=== PATIENT | male | born 1945 | race Caucasian/White ===

== ENCOUNTER 2025-02-01 14:32 | Inpatient (IN) ==
[2025-02-01] MEDS ORDERED: IOPAMIDOL 100 ML BOTTLE IV ONE (14:33)
[2025-02-01] MEDS: IPRATROPIUM/ALBUTEROL 3 ML AMPUL.NEB NEB ONE (15:00)
[2025-02-01] MEDS: 0.9 % SODIUM CHLORIDE 1,000 ML IV ONE (15:06)
[2025-02-01] MEDS: PIPERACILLIN SODIUM/TAZOBACTAM 3.375 GM in DEXTROSE 5% IN WATER 50 ML IV ONE (15:12)
[2025-02-01] MEDS ORDERED: VANCOMYCIN PER PHARMACY IV SCH (15:15)
[2025-02-01 15:36] LABS: Basophils # (Auto) 0.04 K/mcL (0.00-0.30); Basophils % (Auto) 0.2 % (0.0-2.0); Eosinophils # (Auto) 0.02 K/mcL (0.00-0.70); Eosinophils % (Auto) 0.1 % (0.0-7.0); Hematocrit 38.1 % (40.1-51.0); Hemoglobin 11.9 g/dL (13.7-17.5); Lymphocytes # (Auto) 0.46 K/mcL (1.50-4.80); Lymphocytes % (Auto) 2.3 % (15.5-49.0); Mean Corpuscular HGB Conc 31.2 g/dL (31.0-36.0); Monocytes # (Auto) 0.93 K/mcL (0.10-0.90); Monocytes % (Auto) 4.7 % (1.0-12.0); Neutrophils % (Auto) 92.3 % (38.0-78.0); Platelet Count 243 K/mcL (140-440); RBC 3.99 M/mcL (4.63-6.08); WBC 20.0 K/mcL (4.5-11.0)
[2025-02-01] MEDS: VANCOMYCIN 1,750 MG in 0.9 % SODIUM CHLORIDE 500 ML IV SCH (15:44)
[2025-02-01 15:58] LABS: ALT/SGPT 13 U/L (<40); AST/SGOT 20 U/L (<40); Albumin 3.9 gm/dL (3.2-5.2); Albumin/Globulin Ratio 1.6 (1.0-2.3); Alkaline Phosphatase 59 U/L (39-117); Anion Gap 11.0 (8.0-16.0); Bilirubin,Total 0.5 mg/dL (0.1-1.0); Blood Urea Nitrogen 47 mg/dL (8-23); Calcium 9.1 mg/dL (8.6-10.4); Carbon Dioxide 27 mmol/L (22-30); Chloride 98 mmol/L (96-108); Globulin 2.5 gm/dL (2.2-3.7); Glucose 130 mg/dL (70-105); Potassium 4.7 mmol/L (3.3-5.1); Sodium 136 mmol/L (133-145)
[2025-02-01 16:11] LABS: INR 1.0 (0.9-1.1); Prothrombin Time 13.8 sec (11.9-14.5)
[2025-02-01] MEDS: 0.9 % SODIUM CHLORIDE 500 ML IV ONE (16:11)
[2025-02-01] MEDS: HEPARIN 5,000 UNIT/ML VIAL IV PRN (18:11)
[2025-02-01] MEDS: HEPARIN SOD,PORK IN 0.45% NACL 500 ML IV SCH (18:12)
[2025-02-01 18:58] LABS: Bacteria,Urine Many /hpf (0); Bilirubin,Urine Negative (Negative); Color,Urine Yellow; Glucose,Urine (UA) Negative (Negative); Ketones,Urine 5(Trace) mg/dL (Negative); Leukocyte Esterase,Urine 2+(Moderate) /uL (Negative); PH,Urine 5.5 (5.0-9.0); Protein,Urine Negative (Negative); Specific Gravity,Urine 1.010 (1.000-1.035); Urobilinogen,Urine Normal
[2025-02-01] MEDS ORDERED: ALBUTEROL SULFATE 2.5 MG/3 ML NEBULIZER NEB PRN (21:02)
[2025-02-01] MEDS ORDERED: SENNOSIDES 1 TABLET PO PRN (21:02)
[2025-02-01] MEDS ORDERED: DEXTROSE 50% 50 ML VIAL IV PRN (21:02)
[2025-02-01] MEDS ORDERED: ONDANSETRON 4 MG/2 ML VIAL IV PRN (21:02)
[2025-02-01] MEDS ORDERED: LACTULOSE 20 GM/30 ML ORAL.SOL PO PRN (21:02)
[2025-02-01] MEDS ORDERED: DEXTROSE 31 GM ORAL.SUSP PO PRN (21:02)
[2025-02-01] MEDS: IPRATROPIUM/ALBUTEROL 3 ML AMPUL.NEB NEB SCH (21:18)
[2025-02-01 21:50] LABS: ALT/SGPT 14 U/L (<40); AST/SGOT 28 U/L (<40); Albumin 3.9 gm/dL (3.2-5.2); Albumin/Globulin Ratio 1.4 (1.0-2.3); Alkaline Phosphatase 57 U/L (39-117); Anion Gap 12.0 (8.0-16.0); Bilirubin,Direct < 0.2 mg/dL (0-0.3); Bilirubin,Total 0.3 mg/dL (0.1-1.0); Blood Urea Nitrogen 41 mg/dL (8-23); Calcium 8.8 mg/dL (8.6-10.4); Carbon Dioxide 25 mmol/L (22-30); Chloride 98 mmol/L (96-108); Globulin 2.7 gm/dL (2.2-3.7); Glucose 286 mg/dL (70-105); Phosphorous 3.4 mg/dL (2.5-4.5); Potassium 5.1 mmol/L (3.3-5.1); Sodium 135 mmol/L (133-145); Triglycerides 54 mg/dL (<150); Uric Acid 7.3 mg/dL (2.5-8.0)
[2025-02-01] MEDS: CEFEPIME 2 GM VIAL IV SCH (22:05)
[2025-02-01] MEDS: AZITHROMYCIN 500 MG in DEXTROSE 5% IN WATER 250 ML IV SCH (22:06)
[2025-02-01] MEDS: CEFEPIME 1 GM VIAL ONE (22:15)
[2025-02-01] MEDS: INSULIN LISPRO 1 UNIT/0.01 ML UNIT SQ SCH (22:21)
[2025-02-01] MEDS: 0.9 % SODIUM CHLORIDE 10 ML SYRINGE IV SCH (22:26)
[2025-02-01] MEDS: 0.9 % SODIUM CHLORIDE 1,000 ML IV SCH (22:26)
[2025-02-02] MEDS: HEPARIN SOD,PORK IN 0.45% NACL 500 ML IV SCH (02:00)
[2025-02-02 06:35] LABS: Basophils # (Auto) 0.02 K/mcL (0.00-0.30); Basophils % (Auto) 0.1 % (0.0-2.0); Eosinophils # (Auto) 0 K/mcL (0.00-0.70); Eosinophils % (Auto) 0 % (0.0-7.0); Hematocrit 32.4 % (40.1-51.0); Hemoglobin 10.0 g/dL (13.7-17.5); Lymphocytes # (Auto) 0.32 K/mcL (1.50-4.80); Lymphocytes % (Auto) 1.7 % (15.5-49.0); Mean Corpuscular HGB Conc 30.9 g/dL (31.0-36.0); Monocytes # (Auto) 0.08 K/mcL (0.10-0.90); Monocytes % (Auto) 0.4 % (1.0-12.0); Neutrophils % (Auto) 97.5 % (38.0-78.0); Platelet Count 230 K/mcL (140-440); RBC 3.28 M/mcL (4.63-6.08); WBC 18.4 K/mcL (4.5-11.0)
[2025-02-02] MEDS: INSULIN LISPRO 1 UNIT/0.01 ML UNIT SQ SCH (07:49)
[2025-02-02 07:54] LABS: ALT/SGPT 12 U/L (<40); AST/SGOT 18 U/L (<40); Albumin 3.6 gm/dL (3.2-5.2); Albumin/Globulin Ratio 1.4 (1.0-2.3); Alkaline Phosphatase 49 U/L (39-117); Anion Gap 8.0 (8.0-16.0); Bilirubin,Direct < 0.2 mg/dL (0-0.3); Bilirubin,Total 0.3 mg/dL (0.1-1.0); Blood Urea Nitrogen 39 mg/dL (8-23); Calcium 8.6 mg/dL (8.6-10.4); Carbon Dioxide 26 mmol/L (22-30); Chloride 100 mmol/L (96-108); Globulin 2.5 gm/dL (2.2-3.7); Glucose 168 mg/dL (70-105); Phosphorous 3.1 mg/dL (2.5-4.5); Potassium 4.9 mmol/L (3.3-5.1); Sodium 134 mmol/L (133-145); Triglycerides 54 mg/dL (<150); Uric Acid 6.7 mg/dL (2.5-8.0)
[2025-02-02] MEDS: APIXABAN 5 MG TABLET PO SCH (21:16)
[2025-02-03 05:44] LABS: Basophils # (Auto) 0.01 K/mcL (0.00-0.30); Basophils % (Auto) 0.1 % (0.0-2.0); Eosinophils # (Auto) 0 K/mcL (0.00-0.70); Eosinophils % (Auto) 0 % (0.0-7.0); Hematocrit 36.0 % (40.1-51.0); Hemoglobin 11.2 g/dL (13.7-17.5); Lymphocytes # (Auto) 0.63 K/mcL (1.50-4.80); Lymphocytes % (Auto) 4.0 % (15.5-49.0); Mean Corpuscular HGB Conc 31.1 g/dL (31.0-36.0); Monocytes # (Auto) 0.29 K/mcL (0.10-0.90); Monocytes % (Auto) 1.8 % (1.0-12.0); Neutrophils % (Auto) 93.7 % (38.0-78.0); Platelet Count 229 K/mcL (140-440); RBC 3.76 M/mcL (4.63-6.08); WBC 15.9 K/mcL (4.5-11.0)
[2025-02-03 06:05] LABS: ALT/SGPT 15 U/L (<40); AST/SGOT 17 U/L (<40); Albumin 3.7 gm/dL (3.2-5.2); Albumin/Globulin Ratio 1.5 (1.0-2.3); Alkaline Phosphatase 49 U/L (39-117); Anion Gap 6.0 (8.0-16.0); Bilirubin,Direct < 0.2 mg/dL (0-0.3); Bilirubin,Total 0.2 mg/dL (0.1-1.0); Blood Urea Nitrogen 46 mg/dL (8-23); Calcium 8.7 mg/dL (8.6-10.4); Carbon Dioxide 27 mmol/L (22-30); Chloride 101 mmol/L (96-108); Globulin 2.4 gm/dL (2.2-3.7); Glucose 180 mg/dL (70-105); Phosphorous 3.0 mg/dL (2.5-4.5); Potassium 5.2 mmol/L (3.3-5.1); Sodium 134 mmol/L (133-145); Triglycerides 88 mg/dL (<150); Uric Acid 6.3 mg/dL (2.5-8.0)
[2025-02-03] MEDS: ACETAMINOPHEN 325 MG TABLET PO PRN (06:34)
[2025-02-03] MEDS: FUROSEMIDE 40 MG/4 ML VIAL IV ONE (11:00)
[2025-02-03] MEDS: acetaZOLAMIDE SOD 500 MG VIAL IV ONE (11:00)
[2025-02-03] MEDS: FINASTERIDE 5 MG TABLET PO SCH (11:10)
[2025-02-03] MEDS: TAMSULOSIN 0.4 MG CAPSULE PO SCH (11:10)
[2025-02-03] MEDS: FUROSEMIDE 40 MG/4 ML VIAL IV SCH (15:58)
[2025-02-03 16:00] LABS: Potassium 4.7 mmol/L (3.3-5.1)
[2025-02-03] MEDS: BENZONATATE 100 MG CAPSULE PO PRN (19:40)
[2025-02-03] MEDS: SIMVASTATIN 20 MG TABLET PO SCH (21:07)
[2025-02-04 05:30] LABS: Basophils # (Auto) 0 K/mcL (0.00-0.30); Basophils % (Auto) 0 % (0.0-2.0); Eosinophils # (Auto) 0 K/mcL (0.00-0.70); Eosinophils % (Auto) 0 % (0.0-7.0); Hematocrit 36.8 % (40.1-51.0); Hemoglobin 11.4 g/dL (13.7-17.5); Lymphocytes # (Auto) 0.40 K/mcL (1.50-4.80); Lymphocytes % (Auto) 3.5 % (15.5-49.0); Mean Corpuscular HGB Conc 31.0 g/dL (31.0-36.0); Monocytes # (Auto) 0.16 K/mcL (0.10-0.90); Monocytes % (Auto) 1.4 % (1.0-12.0); Neutrophils % (Auto) 94.7 % (38.0-78.0); Platelet Count 238 K/mcL (140-440); RBC 3.87 M/mcL (4.63-6.08); WBC 11.5 K/mcL (4.5-11.0)
[2025-02-04 05:49] LABS: ALT/SGPT 57 U/L (<40); AST/SGOT 32 U/L (<40); Albumin 3.8 gm/dL (3.2-5.2); Albumin/Globulin Ratio 1.6 (1.0-2.3); Alkaline Phosphatase 53 U/L (39-117); Anion Gap 7.0 (8.0-16.0); Bilirubin,Direct < 0.2 mg/dL (0-0.3); Bilirubin,Total 0.3 mg/dL (0.1-1.0); Blood Urea Nitrogen 48 mg/dL (8-23); Calcium 9.1 mg/dL (8.6-10.4); Carbon Dioxide 29 mmol/L (22-30); Chloride 99 mmol/L (96-108); Globulin 2.4 gm/dL (2.2-3.7); Glucose 219 mg/dL (70-105); Phosphorous 2.6 mg/dL (2.5-4.5); Potassium 4.7 mmol/L (3.3-5.1); Sodium 135 mmol/L (133-145); Triglycerides 80 mg/dL (<150); Uric Acid 6.4 mg/dL (2.5-8.0)
[2025-02-04] MEDS: acetaZOLAMIDE SOD 500 MG VIAL IV ONE (07:39)
[2025-02-04] MEDS: LEVOFLOXACIN 750 MG TABLET PO SCH (09:19)
[2025-02-04] MEDS: GABAPENTIN 300 MG CAPSULE PO SCH (09:19)
[2025-02-04] MEDS: FUROSEMIDE 40 MG/4 ML VIAL IV ONE (16:31)
[2025-02-05 06:37] LABS: Basophils # (Auto) 0.01 K/mcL (0.00-0.30); Basophils % (Auto) 0.1 % (0.0-2.0); Eosinophils # (Auto) 0.02 K/mcL (0.00-0.70); Eosinophils % (Auto) 0.2 % (0.0-7.0); Hematocrit 38.4 % (40.1-51.0); Hemoglobin 12.2 g/dL (13.7-17.5); Lymphocytes # (Auto) 0.83 K/mcL (1.50-4.80); Lymphocytes % (Auto) 7.0 % (15.5-49.0); Mean Corpuscular HGB Conc 31.8 g/dL (31.0-36.0); Monocytes # (Auto) 0.58 K/mcL (0.10-0.90); Monocytes % (Auto) 4.9 % (1.0-12.0); Neutrophils % (Auto) 87.5 % (38.0-78.0); Platelet Count 237 K/mcL (140-440); RBC 4.08 M/mcL (4.63-6.08); WBC 11.8 K/mcL (4.5-11.0)
[2025-02-05 06:45] LABS: ALT/SGPT 75 U/L (<40); AST/SGOT 35 U/L (<40); Albumin 3.8 gm/dL (3.2-5.2); Albumin/Globulin Ratio 1.6 (1.0-2.3); Alkaline Phosphatase 56 U/L (39-117); Anion Gap 8.0 (8.0-16.0); Bilirubin,Direct 0.2 mg/dL (<0.3); Bilirubin,Total 0.4 mg/dL (0.1-1.0); Blood Urea Nitrogen 49 mg/dL (8-23); Calcium 9.4 mg/dL (8.6-10.4); Carbon Dioxide 27 mmol/L (22-30); Chloride 100 mmol/L (96-108); Globulin 2.4 gm/dL (2.2-3.7); Glucose 150 mg/dL (70-105); Phosphorous 2.3 mg/dL (2.5-4.5); Potassium 3.9 mmol/L (3.3-5.1); Sodium 135 mmol/L (133-145); Triglycerides 117 mg/dL (<150); Uric Acid 6.1 mg/dL (2.5-8.0)
[2025-02-05] MEDS: FUROSEMIDE 40 MG/4 ML VIAL IV ONE (07:36)
[2025-02-05] MEDS: acetaZOLAMIDE SOD 500 MG VIAL IV ONE (07:36)
[2025-02-05 14:16] VITALS: TEMP 98; O2SAT 92
== END 2025-02-05 14:27 | disposition home or self-care (01) | DRG 189 ==
LOC: ED 14:32 → ICU 21:02
PROVIDERS: ADMIT Internal Medicine; ATTEND Internal Medicine